=== PATIENT | female | born 1965 | race Caucasian/White ===

== ENCOUNTER 2017-01-13 17:33 | Emergency (ER) | payer OTHER ==
[2017-01-13 17:47] VITALS: BP 114/68; PULSE 85; RESP 16; TEMP 97.5
[2017-01-13] MEDS ORDERED: DIPH,PERTUS(ACELL)TETVAC-LF 0.5 ML VIAL IM ONE (18:36)
--- NOTE | 2017-01-13 18:39 | ED ---
Wound/Laceration HPI - General Chief Complaint: Wound/Laceration Stated Complaint: left thumb laceration Time Seen by Provider: 01/13/17 18:34 Source: patient, RN notes reviewed Mode of arrival: ambulatory Limitations: no limitations - History of Present Illness Initial Comments: Patient is a 51-year-old female presents to the emergency room for evaluation of left hand laceration. Patient states she was cutting chicken and lacerated her hand. Patient denies taking blood thinners. Patient states incident happened about an hour ago. Patient denies any tingling in her thumb or fingers. Patient states she still has full range of motion of her hand and fingers. Patient denies any other injuries during incident. Patient states she is not sure when she last had a tetanus shot. - Related Data Home Medications Medication Instructions Recorded Confirmed No Known Home Medications [No 01/13/17 01/13/17 Known Home Medications] Allergies Allergy/AdvReac Type Severity Reaction Status Date / Time No Known Allergies Allergy Verified 01/13/17 17:47 Review of Systems ROS Statement: Those systems with pertinent positive or pertinent negative responses have been documented in the HPI. ROS Other: All systems not noted in ROS Statement are negative. Past Medical History Past Medical History: No Reported History History of Any Multi-Drug Resistant Organisms: None Reported Past Surgical History: Appendectomy, Tonsillectomy Past Psychological History: No Psychological Hx Reported Smoking Status: Never smoker Past Alcohol Use History: Occasional Past Drug Use History: None Reported General Exam - General Exam Comments Initial Comments: Sitting in exam room, no acute distress. Limitations: no limitations General appearance: alert, in no apparent distress Head exam: Present: atraumatic, normocephalic, normal inspection Eye exam: Present: normal appearance ENT exam: Present: normal exam Neck exam: Present: normal inspection Respiratory exam: Absent: respiratory distress Left Hand Wrist exam: Present: full ROM, laceration (4 cm laceration over the thenar eminence) Vascular: Present: normal capillary refill (Capillary refill less than 2 seconds ), radial pulse (2+), ulnar pulse (2+) Back exam: Present: normal inspection Neurological exam: Present: alert, oriented X3, CN II-XII intact Psychiatric exam: Present: normal affect, normal mood Skin exam: Present: warm, dry. Absent: rash Course Vital Signs 01/13/17 17:44 Temperature 97.5 F L Pulse Rate 85 Respiratory 16 Rate Blood Pressure 114/68 O2 Sat by Pulse 100 Oximetry Procedures - Laceration Laceration #1 Consent Obtained: verbal consent Indication: laceration Site: other (left hand) Size (cm): 4 Description: linear Depth: simple, single layer Anesthetic Used: lidocaine 1% Anesthesia Technique: local infiltration Amount (mls): 5 Pre-repair: wound explored, irrigated extensively Type of Sutures: nylon Size of Sutures: 5-0 Number of Sutures: 7 Technique: simple, interrupted Patient Tolerated Procedure: well, no complications Medical Decision Making - Medical Decision Making Patient is a 51-year-old female presents to the emergency room for evaluation of left hand laceration. Laceration repaired with sutures. Patient updated on her tetanus vaccine. Advised patient to return in 7-10 days for suture removal. Patient states she understands everything that was discussed with her. Return parameters discussed. Disposition Clinical Impression: Laceration of left hand Disposition: HOME SELF-CARE Condition: Good Instructions: Care For Your Stitches (ED), Laceration (ED) Additional Instructions: Do not submerge suture area in water. Clean suture area with a damp cloth. Take Tylenol or Motrin as needed for discomfort. Please return in 7-10 days for suture removal. If any new symptom arises or symptoms worsen, return to ER as soon as possible. Referrals: Nonstaff,Physician [Primary Care Provider] - 1-2 days Time of Disposition: 19:35
== END 2017-01-13 19:45 | disposition home or self-care (01) ==
LOC: EC 17:33
DX: S61.412A Laceration without foreign body of left hand, initial encounter (principal); W26.9XXA Contact with unspecified sharp object(s), initial encounter; Y93.G1 Activity, food preparation and clean up
CPT/HCPCS: 12002; 90471; 90715; 99282